=== PATIENT | male | born 1975 | race Caucasian/White ===

== ENCOUNTER 2017-08-06 04:24 | Inpatient (IN) | payer BC, OTHER ==
[~2017-08-06] VITALS: Ht 182.9 cm; Wt 73.9 kg
[2017-08-06] VITALS (14 sets, daily range): BP systolic 122–143; BP diastolic 82–99
--- NOTE | ~2017-08-06 | EKG ---
[place] [address] [facility] [place] [address] ELECTROCARDIOGRAM REPORT Name: GOLDIE BARTH Room #: 356-P ADM IN M.R.#: [id number] Admission: 08/06/17 Attend Phys: Marquis Beverly MD Discharge: Date of : 75 Report #: [id number] THIS REPORT FOR: //name// [facility] ED Test Date: 2017-08-06 Test Time: 04:29:20 Pat Name: GOLDIE BARTH Department: Room: Gender: M Duct Maker: FABIEN : 1975 Requested By: Guilherme Romero Order Number: [id number] MD: Gregg Cardenas Measurements Intervals [place] Rate: 82 P: 80 NC: 169 QRS: -78 QRSD: 96 T: 60 QT: 368 QTc: 430 Interpretive Statements Sinus rhythm LAD, consider left anterior fascicular block ST elevation possible acute pericarditis vs early repolarization Compared to ECG 05/23/2016 17:23:27 No significant changes Electronically Signed On 08-06-2017 8:19:49 CDT by Gregg Cardenas [email or web address] <ELECTRONICALLY SIGNED> By: Gregg Cardenas MD, [facility] 08/06/17 0819 0429 0429 Gregg Cardenas MD, [facility] /EPI
--- NOTE | ~2017-08-06 | CATHLAB ---
[facility] [address] [place] [address] INVASIVE PROCEDURE REPORT Name: GOLDIE BARTH Room #: 356-P [facility] IN ..#: [id number] Admission: 08/06/17 Attend Phys: Terrell Barbosa Discharge: 08/06/17 Date of : 75 Date of Service: 08/08/17 0943 Report #: [id number] THIS REPORT FOR: //name// APPROVED REPORT Study performed: 08/06/2017 11:47:02 Patient Details Patient Status: In-Patient Room #: The patient is a 42 year-old male Event Personnel Avila Dey Patient Support Partner, Brii Palacios Sandifer, David Scrub, Knisely, Ceola RN sewer maintenance supervisor Performed Left Heart Cath w/or w/o Coronaries [id number] [facility], supervision of conscious sedation Indication Chest pain Risk Factors Dysplipidemia , Family History, Hypertension, Diabetes Tobacco History () Procedure Narrative The Right Groin^ was infiltrated with 1% Lidocaine subcutaneous anesthesia. A PINNACLE 4FR Sheath #[id number] sheath was inserted into the RFA^. Coronary angiography was performed using coronary diagnostic catheters. The right coronary system was accessed and visualized with a JR4 catheter. The left coronary system was accessed and visualized with a JL4 catheter. The left ventricle was accessed and visualized with a PIGTAIL catheter. Left ventricular/Aortic Valve gradient assessed via catheter pullback. Hemostasis was obtained with manual pressure following sheath removal without any complications. There was no hematoma. Intraoperative Conscious Sedation Sedation start time: 11.52 Case end Time: 12.08 Versed 24 mg Fluoro Time: 2.11 minutes Dose: DAP 1468.70 cGycm2 218 mGy [facility] [place] [place] [address] INVASIVE PROCEDURE REPORT Name: GOLDIE BARTH Room #: 356-P [facility]#: [id number] Admission: 08/06/17 Attend Phys: Terrell Barbosa Discharge: 08/06/17 Date of : 75 Date of Service: 08/08/17 0943 Report #: [id number] Contrast Type and Amount: Omnipaque 40 ml Coronary Angiography The patient's coronary anatomy is right dominant. Diagnostic Cath Left Main Normal origin and caliber bifurcates left anterior descending left circumflex free of high-grade disease LAD Moderate caliber type III vessel which courses in the anterior interventricular sulcus giving rise to septal and diagonal branches. It is tortuous in its course but is free of irregularities or obstructive lesions. Diagonal 1 Smaller caliber vessel without significant high-grade lesions noted Circumflex Monitor large-caliber vessel coursing laterally and terminating as a lateral wall marginal branch free of high-grade disease. The distal portion is a small posterior wall branch which is also without significant lesion OM1 Essentially the circumflex proper without significant lesions noted Right Coronary Large-caliber vessel normal origin courses in the AV groove giving rise to 2 small RV marginal branches. The vessel then continues to the crux of the heart gives rise to a small to moderate caliber posterior descending artery and terminating is a moderate posterior wall branches and artery to the AV node noted. Of interest there is evidence of a AVM noted in the sinuses of [place] region R PDA Small-caliber vessel free of high-grade disease Left Ventriculography Left Ventriculography was not performed. Hemodynamics The aortic pressure is 131/82 mmHg with a mean of 104 mmHg. The left ventricular pressure is 124/11 mmHg with a mean of mmHg. The left ventricular end diastolic pressure is 17 mmHg. Conclusion 1. Normal coronary arteries 2. Normal hemodynamics Recommendations [facility] [address] [address] INVASIVE PROCEDURE REPORT Name: GOLDIE BARTH Room #: 356-P [facility] IN ..#: [id number] Admission: 08/06/17 Attend Phys: Terrell Barbosa Discharge: 08/06/17 Date of : 75 Date of Service: 08/08/17 0943 Report #: [id number] Smoking Cessation Cardiac Risk Reduction Program <ELECTRONICALLY SIGNED> By: Avila Dey MD 08/08/1743 0943 0943 Avila Dey MD /INF
[~2017-08-06 04:24] MED LIST: CLEOCIN HCL150 MG PO; CLOTRIMAZOLE 1%15 G1 TOP; HUMULIN 70100 UNIT/3 SQ; NORCO 5-325 TA1 EACH PO; PHENERGAN 25 MG25 M1 PO
[2017-08-06 04:59] LABS: ABSOLUTE NEUTROPHILS 3.8 thou/uL (1.4-8.2); EOSINOPHILS 8.1 % (0.0-3.0); HEMATOCRIT 41.2 % (42.0-52.0); HEMOGLOBIN 14.3 gm/dL (14.0-18.0); LYMPHOCYTES 30.2 % (24.0-44.0); MCH 31.4 pg (26.0-34.0); MCHC 34.7 g/dL (28.0-37.0); MCV 90.5 fL (80.0-100.0); MONOCYTES 10.1 % (1.0-8.0); PLATELET COUNT 275 thou/uL (150-400); POLYS 50.6 % (36.0-66.0); RBC 4.55 mil/uL (4.50-6.00); RDW 12.8 % (10.5-14.5); WBC 7.5 thou/uL (4.0-11.0)
[2017-08-06 05:07] LABS: ANION GAP 7 mmol/L (7-16); BUN 13 mg/dL (7-18); CALCIUM 9.8 mg/dL (8.5-10.1); CHLORIDE 99 mmol/L (98-107); CO2 30 mmol/L (21-32); CREATININE 0.9 mg/dL (0.7-1.3); GLUCOSE 342 mg/dL (74-106); POTASSIUM 4.4 mmol/L (3.5-5.1); SODIUM 136 mmol/L (136-145)
[2017-08-06 05:17] LABS: SGOT 17 U/L (15-37); SGPT 27 U/L (30-65); TOTAL BILIRUBIN 0.2 mg/dL (<0.1-1.0); TOTAL PROTEIN 7.5 g/dL (6.4-8.2); TROPONIN-I < 0.04 ng/mL (<0.06)
[2017-08-06 05:18] LABS: APTT 25.1 Seconds (24.5-32.8); PROTIME 9.4 Seconds (9.3-11.4)
[2017-08-06] MEDS ORDERED: HUMULIN 70100 UNIT/3 ×2 (07:07→07:48)
[2017-08-06] MEDS ORDERED: NEURONTIN 300300 M1 PO (07:48)
[2017-08-06 10:53] LABS: CHOLESTEROL 206 mg/dL (<200); HDL CHOLESTEROL 75 mg/dL (>40); LDL CHOLESTEROL 118 mg/dL (<100); TC:HDL 2.7 Ratio (Not establshd); TRIGLYCERIDE 69 mg/dL (<150); VLDL 14 mg/dL (<40)
[2017-08-06] MEDS ORDERED: LIPITOR 20 MG T20 M1 PO (16:27)
[2017-08-06] MEDS ORDERED: ASPIR 8181 M1 PO (16:27)
[2017-08-06] MEDS ORDERED: LISINOPRIL5 MG PO (16:27)
[2017-08-07 07:12] LABS: GLYCOHEMOGLOBIN (HGB A1C) 8.4 % (4.8-5.6)
== END 2017-08-06 17:25 | disposition home or self-care (01) | DRG 313 ==
LOC: ER 04:24 → 3W 05:36 → EROBS 05:36 → 3W 06:10
PROVIDERS: Emergency Medicine; Nurse Practitioner
DX: R07.9 Chest pain, unspecified (principal); E78.5 Hyperlipidemia, unspecified; E10.65 Type 1 diabetes mellitus with hyperglycemia; I10 Essential (primary) hypertension; F17.210 Nicotine dependence, cigarettes, uncomplicated; F10.10 Alcohol abuse, uncomplicated; F12.90 Cannabis use, unspecified, uncomplicated; Z90.49 Acquired absence of other specified parts of digestive tract; Z79.4 Long term (current) use of insulin; Z79.899 Other long term (current) drug therapy; Z71.6 Tobacco abuse counseling; Z71.41 Alcohol abuse counseling and surveillance of alcoholic; Z71.51 Drug abuse counseling and surveillance of drug abuser; Z88.0 Allergy status to penicillin; Z91.040 Latex allergy status; Z82.49 Family history of ischemic heart disease and other diseases of the circulatory system
CPT/HCPCS: 10779

== ENCOUNTER 2017-08-10 15:48 | Emergency (ER) | payer BC, OTHER ==
[~2017-08-10] VITALS: Ht 182.9 cm; Wt 73.9 kg
--- NOTE | ~2017-08-10 | EKG ---
[place] [address] [place] [address] ELECTROCARDIOGRAM REPORT Name: GOLDIE BARTH [id number] Admission: 08/10/17 Attend Phys: Discharge: Date of : 75 Report #: [id number] THIS REPORT FOR: //name// [facility] ED Test Date: 2017-08-10 Test Time: 16:07:15 Pat Name: GOLDIE BARTH Department: Room: Gender: Life Skills Coordinator: [facility] : 1975 Requested By: Christina Mittal Order Number: [id number] MD: Gregg Cardenas Measurements Intervals [place] Rate: 68 P: 68 [place]: 171 QRS: -41 QRSD: 100 T: 44 QT: 403 QTc: 429 Interpretive Statements Sinus rhythm Leftward axis Poor R wave progression no previous ECGs available for comparison Electronically Signed On 08-10-2017 16:59:35 CDT by Gregg Cardenas [email or web address] <ELECTRONICALLY SIGNED> By: Gregg Cardenas MD, [facility] 08/10/17 1659 1607 1607 Gregg Cardenas MD, FAC /EPI
[~2017-08-10 15:48] MED LIST changes: +ASPIR 8181 M1 PO; +HUMULIN 70100 UNIT/3; +LIPITOR 20 MG T20 M1 PO; +LISINOPRIL5 MG PO; +NEURONTIN 300300 M1 PO
[2017-08-10 16:49] LABS: BASOPHILS 1.2 % (0.0-2.0); EOSINOPHILS 2.7 % (0.0-3.0); HEMOGLOBIN 14.8 gm/dL (14.0-18.0); LYMPHOCYTES 26.7 % (24.0-44.0); MCH 31.3 pg (26.0-34.0); MCHC 34.4 g/dL (28.0-37.0); MCV 90.9 fL (80.0-100.0); PLATELET COUNT 286 thou/uL (150-400); POLYS 61.4 % (36.0-66.0); RBC 4.74 mil/uL (4.50-6.00); RDW 12.8 % (10.5-14.5); WBC 9.8 thou/uL (4.0-11.0)
[2017-08-10 16:53] LABS: ANION GAP 8 mmol/L (7-16); BUN 14 mg/dL (7-18); CALCIUM 9.7 mg/dL (8.5-10.1); CHLORIDE 98 mmol/L (98-107); CO2 28 mmol/L (21-32); GLUCOSE 323 mg/dL (74-106); POTASSIUM 4.2 mmol/L (3.5-5.1); SODIUM 134 mmol/L (136-145)
[2017-08-10 17:01] LABS: ALBUMIN 4.5 g/dL (3.4-5.0); DIRECT BILIRUBIN 0.1 mg/dL (<0.1-0.3); LIPASE 62 U/L (73-393); SGOT 20 U/L (15-37); SGPT 28 U/L (30-65); TOTAL BILIRUBIN 0.6 mg/dL (<0.1-1.0); TROPONIN-I < 0.04 ng/mL (<0.06)
[2017-08-10] MEDS ORDERED: MAALOX ADVANCE355 ML PO (18:30)
[2017-08-10] MEDS ORDERED: LIDOCAINE VISC100 ML PO (18:30)
== END 2017-08-10 18:50 | disposition home or self-care (01) ==
LOC: ER 15:48
PROVIDERS: Emergency Medicine
DX: R07.9 Chest pain, unspecified (principal); E10.9 Type 1 diabetes mellitus without complications; Z79.4 Long term (current) use of insulin; Z90.49 Acquired absence of other specified parts of digestive tract; F17.210 Nicotine dependence, cigarettes, uncomplicated; Z88.0 Allergy status to penicillin; Z91.040 Latex allergy status

== ENCOUNTER 2017-08-17 13:06 | Emergency (ER) | payer BC, OTHER ==
[~2017-08-17] VITALS: Ht 182.9 cm; Wt 70.3 kg
[~2017-08-17 13:06] MED LIST changes: +LIDOCAINE VISC100 ML PO; +MAALOX ADVANCE355 ML PO
[2017-08-17] MEDS ORDERED: NORCO 5-325 TA1 EACH PO (13:34)
== END 2017-08-17 14:02 | disposition home or self-care (01) ==
LOC: ER 13:06
DX: K25.9 Gastric ulcer, unspecified as acute or chronic, without hemorrhage or perforation (principal); E10.9 Type 1 diabetes mellitus without complications; Z90.49 Acquired absence of other specified parts of digestive tract; F17.210 Nicotine dependence, cigarettes, uncomplicated; Z88.0 Allergy status to penicillin

== ENCOUNTER 2017-08-29 08:23 | Emergency (ER) | payer BC, OTHER ==
[~2017-08-29] VITALS: Ht 182.9 cm; Wt 72.6 kg
[2017-08-29 09:35] LABS: ABSOLUTE NEUTROPHILS 7.6 thou/uL (1.4-8.2); BASOPHILS 0.8 % (0.0-2.0); EOSINOPHILS 2.1 % (0.0-3.0); HEMATOCRIT 41.9 % (42.0-52.0); HEMOGLOBIN 14.8 gm/dL (14.0-18.0); LYMPHOCYTES 17.5 % (24.0-44.0); MCH 31.5 pg (26.0-34.0); MCHC 35.3 g/dL (28.0-37.0); MCV 89.3 fL (80.0-100.0); MONOCYTES 6.5 % (1.0-8.0); PLATELET COUNT 278 thou/uL (150-400); POLYS 73.1 % (36.0-66.0); RBC 4.69 mil/uL (4.50-6.00); RDW 12.6 % (10.5-14.5); WBC 10.5 thou/uL (4.0-11.0)
[2017-08-29 09:45] LABS: CALCIUM 9.6 mg/dL (8.5-10.1); POTASSIUM 4.1 mmol/L (3.5-5.1)
[2017-08-29 09:51] LABS: ALBUMIN 4.2 g/dL (3.4-5.0); TOTAL BILIRUBIN 0.9 mg/dL (<0.1-1.0); TOTAL PROTEIN 7.5 g/dL (6.4-8.2)
[2017-08-29 10:11] LABS: URINE BILIRUBIN NEGATIVE (Negative); URINE BLOOD NEGATIVE (Negative); URINE CLARITY CLEAR; URINE COLOR YELLOW; URINE GLUCOSE-RANDOM* 3+ (Negative); URINE KETONES 2+ (Negative); URINE LEUKOCYTES-REFLEX NEGATIVE (Negative); URINE NITRITE-REFLEX NEGATIVE (Negative); URINE PROTEIN (DIPSTICK) NEGATIVE (Negative); URINE UROBILINOGEN 0.2 E.U./dl (0.2-1.0)
[2017-08-29] MEDS ORDERED: MISOPROSTOL 2200 MC1 PO (10:31)
[2017-08-29] MEDS ORDERED: ULTRAM 50MG TAB50 MG PO (10:31)
[2017-08-29] MEDS ORDERED: ONDANSETRON HCL4 M2 PO (10:31)
[2017-08-29] MEDS ORDERED: PROTONIX40 M1 PO (11:31)
== END 2017-08-29 11:33 | disposition home or self-care (01) ==
LOC: ER 08:23
PROVIDERS: Physician Assistant
DX: K29.70 Gastritis, unspecified, without bleeding (principal); E86.0 Dehydration; E10.65 Type 1 diabetes mellitus with hyperglycemia; F17.210 Nicotine dependence, cigarettes, uncomplicated; Z91.14 Patient's other noncompliance with medication regimen; Z71.6 Tobacco abuse counseling; Z90.49 Acquired absence of other specified parts of digestive tract; Z88.0 Allergy status to penicillin; Z91.040 Latex allergy status

== ENCOUNTER 2018-10-23 10:40 | Emergency (ER) | payer OTHER ==
[~2018-10-23] VITALS: Ht 182.9 cm; Wt 77.1 kg
[~2018-10-23 10:40] MED LIST changes: +MISOPROSTOL 2200 MC1 PO; +ONDANSETRON HCL4 M2 PO; +PROTONIX40 M1 PO; +ULTRAM 50MG TAB50 MG PO
[2018-10-23 11:04] LABS: ABSOLUTE NEUTROPHILS 7.7 thou/uL (1.4-8.2); BASOPHILS 0.6 % (0.0-2.0); EOSINOPHILS 1.7 % (0.0-3.0); HEMATOCRIT 45.4 % (42.0-52.0); HEMOGLOBIN 15.5 gm/dL (14.0-18.0); LYMPHOCYTES 18.3 % (24.0-44.0); MCH 31.4 pg (26.0-34.0); MCHC 34.1 g/dL (28.0-37.0); MCV 92.1 fL (80.0-100.0); MONOCYTES 4.4 % (1.0-8.0); PLATELET COUNT 252 thou/uL (150-400); RBC 4.93 mil/uL (4.50-6.00); RDW 12.4 % (10.5-14.5); WBC 10.2 thou/uL (4.0-11.0)
[2018-10-23 11:06] LABS: URINE BILIRUBIN NEGATIVE (Negative); URINE BLOOD NEGATIVE (Negative); URINE CLARITY CLEAR; URINE COLOR YELLOW; URINE GLUCOSE-RANDOM* 3+ (Negative); URINE KETONES 3+ (Negative); URINE LEUKOCYTES NEGATIVE (Negative); URINE NITRITE NEGATIVE (Negative); URINE PROTEIN (DIPSTICK) NEGATIVE (Negative); URINE UROBILINOGEN 0.2 E.U./dl (0.2-1.0)
[2018-10-23 11:14] LABS: CALCIUM 10.3 mg/dL (8.5-10.1); POTASSIUM 4.9 mmol/L (3.5-5.1)
[2018-10-23 11:20] LABS: ALBUMIN 4.5 g/dL (3.4-5.0); TOTAL BILIRUBIN 0.8 mg/dL (<0.1-1.0); TOTAL PROTEIN 8.6 g/dL (6.4-8.2)
[2018-10-23 12:14] LABS: BE(vivo) -2.3 mmol/L (-2 to +3); HCO3 23.2 mmol/L (22.0-26.0); PCO2 VENOUS 42.5 mmHg (41.0-51.0); PO2 VENOUS 37.1 mmHg (35.0-45.0)
[2018-10-23] MEDS ORDERED: ONDANSETRON HCL4 M2 PO (13:32)
[2018-10-23 13:40] VITALS: BP 122/86
== END 2018-10-23 13:40 | disposition home or self-care (01) ==
LOC: ER 10:40
PROVIDERS: Physician Assistant
DX: R11.2 Nausea with vomiting, unspecified (principal); E10.65 Type 1 diabetes mellitus with hyperglycemia; R10.13 Epigastric pain; F17.210 Nicotine dependence, cigarettes, uncomplicated; Z91.040 Latex allergy status; Z88.0 Allergy status to penicillin; Z79.4 Long term (current) use of insulin; Z79.899 Other long term (current) drug therapy; Z79.82 Long term (current) use of aspirin